=== PATIENT | male | born 1960 | race Caucasian/White ===

== ENCOUNTER → 2019-03-10 | Outpatient (CLI) | payer OTHER ==
[~2019-03-10] MED LIST: ARIP20 PO; ARIP30 PO; ASPI325 PO; AZIT250 PO; BENZ1 PO; BENZ100A PO; BUPR100 PO; CYCL10 PO; DIVA250ER PO; NAPR500 PO; TOBR.3OPSO OP
== END | disposition home or self-care (01) ==
LOC: LAB 19:14 → LAB SHORT 19:14
DX: N39.0 Urinary tract infection, site not specified (principal)
CPT/HCPCS: 87077; 87086; 87186

== ENCOUNTER 2024-11-25 14:07 | Emergency (ER) | payer OTHER ==
[~2024-11-25] VITALS: Ht 188 cm; Wt 142.9 kg
[2024-11-25 15:05] VITALS: BP 106/50
[2024-11-25] MEDS ORDERED: HYDROcodone 5-APAP 325 TAB PO ONE (16:25)
[2024-11-25] MEDS ORDERED: HYDR1TAB94 PO (16:44)
== END 2024-11-25 17:35 | disposition home or self-care (01) ==
LOC: ER 14:07
DX: S82.844A Nondisplaced bimalleolar fracture of right lower leg, initial encounter for closed fracture (principal); Z91.030 Bee allergy status; Z91.013 Allergy to seafood; Z79.82 Long term (current) use of aspirin; Z79.899 Other long term (current) drug therapy; X50.9XXA Other and unspecified overexertion or strenuous movements or postures, initial encounter; Z59.89 Other problems related to housing and economic circumstances
CPT/HCPCS: 29515; 73610; 99283-25; A9270